=== PATIENT | female | born 1975 | race Caucasian/White ===

== ENCOUNTER 2020-01-18 04:14 | Outpatient (CLI) | payer MEDICAID, SELFPAY ==
[2020-01-18 08:32] LABS: Hemoglobin A1C 5.5 % (<5.7)
[2020-01-18 09:19] LABS: ALT 50 U/L (14-59); AST 18 U/L (15-37); Albumin 4.2 g/dL (3.4-5.0); Alkaline Phosphatase 61 U/L (46-116); Anion Gap 8.2 mmol/L (3-11); BUN 12 mg/dL (7-18); Bilirubin, Total 0.4 mg/dL (0.2-1.0); CO2 27.8 mmol/L (21.0-32.0); CREATININE 0.87 mg/dL (0.55-1.02); Calcium 9.3 mg/dL (8.5-10.1); Calculated LDL 167 mg/dL (<100); Chloride 104 mmol/L (98-107); Cholesterol 232 mg/dL (<200); Glucose 113 mg/dL (74-106); HDL Cholesterol 46 mg/dL (40-60); Sodium 140 mmol/L (136-145); Total Protein 7.6 g/dL (6.4-8.2); Triglyceride 98 mg/dL (<150)
== END 2020-01-18 04:34 ==
PROVIDERS: PCP Family Medicine; Visit Provider Family Medicine
DX: R73.9 Hyperglycemia, unspecified (principal)
CPT/HCPCS: 36415; 80053; 80061; 83036

== ENCOUNTER 2020-03-31 10:37 | Outpatient (CLI) | payer MEDICAID, SELFPAY ==
[2020-04-03 18:44] LABS: Patient Race White; SARS-CoV-2 RNA Undetected (Undetected); SARS-CoV-2 Specimen Source Nasal
== END 2020-03-31 10:57 ==
PROVIDERS: PCP Family Medicine; Visit Provider Family Medicine
DX: Z11.59 Encounter for screening for other viral diseases (principal)
CPT/HCPCS: U0003

== ENCOUNTER 2020-05-15 13:08 | Outpatient (CLI) | payer MEDICAID, SELFPAY ==
[2020-05-16 21:29] LABS: COVID-19 RT-PCR Result NEGATIVE (Negative)
== END 2020-05-15 13:28 ==
PROVIDERS: PCP Family Medicine; Visit Provider Family Medicine
DX: R51.9 Headache, unspecified (principal); Z11.59 Encounter for screening for other viral diseases
CPT/HCPCS: U0003

== ENCOUNTER 2020-09-11 17:16 | Emergency (ER) | payer MEDICAID, SELFPAY ==
[2020-09-11] VITALS (10 sets, daily range): BP systolic 108–130; BP diastolic 60–80; PULSE 106–118; RESP 15–26; TEMP 37.4–37.5; O2SAT 94–97
--- NOTE | 2020-09-11 17:15 | RT.EKG_ITS ---
APPROVED REPORT Exam: Resting ECG Reason for Exam: covid Patient Location: E HR:111 bpm ECG Measurements Heart Rate 111 AXIS NJ 127 P 2 QRSd 79 QRS 18 QT 317 T 26 QTc 431 Conclusion Sinus tachycardia...rate> 99 Low voltage, precordial leads...precordial leads <1.0mV
--- NOTE | 2020-09-11 17:38 | W.ED.GENAD ---
Discharge Plan Disposition Patient Disposition: HOME Condition: Stable Discharge Details Clinical Impression: COVID-19, Shortness of breath Primary Care Provider: Randy Da Silva ED Provider: Karyna Ibanez Home Meds and New Rx's Prescriptions: New doxycycline hyclate 100 mg capsule 100 mg PO BID Qty: 8 RF: 0 albuterol sulfate 1.25 mg/3 mL solution for nebulization 1.25 mg inhalation QID PRN (Reason: shortness of breath or wheezing) Qty: 75 RF: 0 prednisone 20 mg tablet 40 mg PO DAILY 4 Days Qty: 8 RF: 0 Continued albuterol sulfate [Ventolin HFA] 90 mcg/actuation HFA aerosol inhaler 1 - 2 puff IH Q4H PRN (Reason: shortness of breath or wheezing) Qty: 8.5 RF: 11 (DME) Aerochamber MV Spacer See Rx Instructions .ROUTE .MEDSUPPLY Qty: 1 RF: 0 lorazepam 0.5 mg tablet 0.25 - 0.5 mg PO BID PRN (Reason: anxiety) Qty: 40 RF: 1 lobelia PO RF: 0 Discharge Instructions Instructions: Doxycycline (By mouth), Albuterol (By breathing), Viral Syndrome (ED), Dyspnea (ED) Additional Instructions: Please encourage fluid intake. Please use her inhaler and nebulizer as previously prescribed. Please take the steroids as prescribed. You will not need another dose of steroids until tomorrow evening. Please take the antibiotics as prescribed. Please continue to monitor your oxygen level at home as you have been. I would like you to follow-up with your primary care within the week for reevaluation. If you develop low oxygen, inability stay hydrated, increase shortness of breath or other new/worsening symptoms please seek care urgently once again. Referrals: Randy Da Silva [Primary Care Provider] - Discharge Data Discharge Date/Time-TO BE ENTERED AT DEPARTURE: 09/11/20 21:10 Medical Decision Making Patient is a pleasant 45-year-old female past medical history pertinent for asthma, presenting today with chief complaint of shortness of breath. Patient reports that she began having upper respiratory symptoms including congestion, sinus pressure, cough 8 days ago. She reports that then 3 days ago she began having increased shortness of breath. Patient was tested for COVID-19 she does have a known contact 3 days ago. Was found to be +2 days ago. Physical shortness of breath is increasing. Has been using her nebulizer more frequently. Present this has helped slightly symptomatic management. She denies any chest pain. Has had some muscle cramps including some discomfort in the posterior aspect of the left lower extremity but no extremity pain currently. On exam, patient appears to be uncomfortable and anxious. She does not appear to be in any respiratory distress. She is afebrile stable vital signs. Lungs initially had some faint wheezing with cleared after cough. No lower extremity edema or calf tenderness Patient is using nebulizer just prior to arrival, is not currently wheezy, will hold off on further treatment at this time. Plan to obtain baseline labs, imaging. I am concerned for potential PE, particularly given the patient's recent diagnosis of COVID-19, increased shortness of breath with tachycardia cardia. Will screen with D-dimer. I suspect that her overlying bacterial infection. She does not have evidence to suggest ACS, dissection at this time. Will give IV fluids, patient did appear quite dry on exam. We will also give steroids for asthma and COVID-19 leading to wheezing and shortness of breath EKG was obtained and reviewed by Dr. Wood. Notable for tachycardic rhythm with a heart rate of 111. Does not low voltage in the precordial leads. No acute ischemic changes noted. Labs reviewed. No leukocytosis. Stable H&H. D-dimer is elevated at 1281. Will obtain CT for PE protocol. Testing slightly low at 3.4. Patient does have mild transaminitis with an AST of 49, ALT of 94. Discussed these findings at length with the patient. We did discuss her/benefits of CT for PE protocol and patient is in agreement with further imaging. FINDINGS: Pulmonary arteries: Normal. No pulmonary emboli. Aorta: No aortic aneurysm. No aortic dissection. Lungs: There are peripheral patchy and ground-glass opacities noted in the bilateral lung whitehead, consistent with known viral pneumonia. Pleural spaces: No pneumothorax. No pleural effusion. Heart: No cardiomegaly. No pericardial effusion. Lymph nodes: No enlarged lymph nodes. Bones/joints: Unremarkable. No acute fracture. Soft tissues: Unremarkable. IMPRESSION: 1. Peripheral patchy and ground-glass opacities in the bilateral lung whitehead, concerning for viral pneumonia. 2. No evidence of pulmonary embolism I discussed these findings with the patient. She is feeling improved after IV fluids, steroids. We will continue patient on steroids. Given the opacities as well as slight I will be placing the patient on the steroid, I do feel that putting her on oral antibiotics at this time would be appropriate. Patient will continue to quarantine. I did encourage close follow-up with primary care. We did discuss Mab infusion and I advised that she discuss this further with her primary care for outpatient evaluation and treatment. He was given strict return precautions. Patient reports that she has a home pulse oximeter will continue to monitor her O2. All of her questions and concerns were addressed and she is in agreement with this plan. HPI General Mode of arrival: ambulatory. Date/Time Provider Initiated Documentation: 09/11/20 17:38. Limitations to Documentation: no limitations. Information obtained by: patient and RN notes reviewed. History of Present Illness 45 year old F presents to the emergency department with the chief complaint of increased SOB, cough, fever, wheezing, described as moderate, Quality is described as other (she denies any pain), and is localized to the chest (feels tight). Patient reports no radiation. Patient started experiencing this day(s) (4) and it has been constant. Medication improves symptom(s), (nebulizer) No exacerbating factors reported . Patient notes cough, fever/chills, loss of appetite and shortness of breath; denies chest pain, nausea/vomiting and weakness. Patient did receive the following treatments prior to arrival, other (albuterol) Related Data Home Medications Medication Instructions Recorded Confirmed albuterol sulfate 90 mcg/actuation 1 - 2 puff IH Q4H PRN #8.5 gm 01/12/19 09/13/20 aerosol inhaler inhalational spacing device #1 each 01/12/19 04/18/20 lorazepam 0.5 mg tablet 0.25 - 0.5 mg PO BID PRN #40 tab 01/18/20 09/11/20 lobelia PO 04/05/20 04/18/20 albuterol sulfate 1.25 mg INHALATION QID PRN #75 ml 09/11/20 09/13/20 doxycycline hyclate 100 mg PO BID #8 cap 09/11/20 09/13/20 prednisone 40 mg PO DAILY 4 Days #8 tab 09/11/20 09/13/20 Previous Rx's Medication Instructions Recorded albuterol sulfate 90 mcg/actuation 1 - 2 puff IH Q4H PRN #8.5 gm 01/12/19 aerosol inhaler inhalational spacing device #1 each 01/12/19 lorazepam 0.5 mg tablet 0.25 - 0.5 mg PO BID PRN #40 tab 01/18/20 albuterol sulfate 1.25 mg INHALATION QID PRN #75 ml 09/11/20 doxycycline hyclate 100 mg PO BID #8 cap 09/11/20 prednisone 40 mg PO DAILY 4 Days #8 tab 09/11/20 Allergies Allergy/AdvReac Type Severity Reaction Status Date / Time No Known Allergies Allergy Verified 09/11/20 17:28 General Stated Complaint: RespSymp RAJAT: 3 Review of Systems Constitutional Constitutional: Reports as per HPI, Reports chills, Reports fever(s) and Denies headache(s) Eyes Eyes: Reports as per HPI, Denies eye discharge and Denies irritation ENT Ears, Nose, Mouth, and Throat: Reports as per HPI, Denies change in voice, Denies otalgia, Denies headache(s), Reports nasal congestion, Denies odynophagia, Denies sinus pain, Reports sore throat and Denies throat swelling Cardiovascular Cardiovascular: Reports as per HPI, Denies chest pain, Denies leg edema, Denies lightheadedness, Denies radiating jaw, neck or arm pain and Reports dyspnea Respiratory Respiratory: Reports as per HPI, Reports cough, Denies pain on inspiration, Denies pain with cough, Reports dyspnea and Reports wheezing Gastrointestinal Gastrointestinal: Reports as per HPI, Denies abdominal pain, Denies change in bowel habits, Denies nausea, Denies odynophagia and Denies vomiting Integumentary/Breasts Skin/Breast: Reports as per HPI and Denies rash Neurologic Neurologic: Reports as per HPI and Denies headache(s) Allergic/Immunologic Allergic/Immunologic: Denies throat swelling and Reports wheezing [facility] Medical History Constipation Hair loss History of asthma Hyperglycemia Mild intermittent asthma Morbid obesity Scalp lesion Surgical History H/O nasal septoplasty Drums teeth removed Family History Mother Depression COPD (chronic obstructive pulmonary disease) Father Alcohol abuse Maternal Grandfather Heart disease Maternal Grandmother Heart disease Paternal Grandfather , 55 CAD (coronary artery disease) Paternal Grandmother , 93 No problems noted. Son No problems noted. Daughter No problems noted. Social History Smoking/Tobacco Use Status: Never Second Hand Exposure: Yes Smoking risk assessment performed?: Yes Alcohol Intake: current Alcohol Intake frequency: a few times a month Alcohol type: beer and wine Drug use: Never Substance use type: does not use Caregiver/Support person: No Household members: spouse and children Housing: house Communication Needs: None Do you need help understanding health information?: Often Pets and animals: Yes Pets and animals: cat(s), dog(s) and horse(s) Do you think of yourself as: straight/heterosexual Current gender identity: female What is your relationship status?: How often do you talk on the phone with friends or family?: decline to answer How often do you get together with friends or relatives?: decline to answer How often do you attend buddhism or yazidism services?: decline to answer Do you belong to any clubs or organized social groups?: decline to answer Panel score (0-1 are the most socially isolated patients): 1 What type of physical activity do you participate in: decline to answer Duration: < 15 minutes/day Frequency: 1-2 times per week Acacia/Zoroastrian: No preference Special acacia needs: No Seatbelt use: always 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 Do you feel safe at home: Yes Do you feel safe in your relationship?: Yes Exam Const General: cooperative, healthy appearing, uncomfortable, no acute distress, well developed, well groomed and anxious Nutritional Appearance: well nourished and overweight Orientation: alert and awake [facility] Head: normal to inspection, normocephalic and atraumatic Ears: hearing grossly normal bilaterally and external ears normal General nose exam: external nose normal and nares normal Face and sinus: normal facial exam, sinuses nontender and face symmetric Mouth: oral mucosae normal, lip normal, tongue normal, oropharynx normal and mucous membranes dry (appears dry) Teeth and gingiva: dentition normal Throat: posterior oropharynx normal, tonsils normal and uvula midline Eyes General: appearance normal, both eyes and all related structures Neck Neck: normal visual inspection, full ROM, no lymphadenopathy and no meningeal signs Resp Effort & Inspection: normal respiratory effort, able to speak in complete sentences and no respiratory distress Auscultation: clear to auscultation bilaterally, no rales, no rhonchi and wheezes (wheezing noted initially, cleared after cough) Cardio Rate: tachycardic Rhythm: regular rhythm Heart Sounds: S1 normal and S2 normal GI Inspection: normal to inspection Palpation: soft and nontender Skin General skin exam: no rashes or lesions noted Neuro General: patient alert and patient awake Cognition: normal cognition Speech: speech normal Gait: normal gait Extrem General: normal to inspection, no clubbing, cyanosis or edema, no pedal edema and no calf tenderness Psych Appearance: grossly normal and well kempt Mental Status: mental status grossly normal Speech and Movement: speech and movement normal Course Vital Signs Vital signs: Vital Signs Temperature 37.5 C 09/11/20 17:23 Pulse 118 H 09/11/20 17:23 Respiratory Rate 09/11/20 17:23 Blood Pressure 130/80 09/11/20 17:23 Pulse Oximetry 96 09/11/20 17:23 Temperature 37.5 C 09/11/20 17:23 Temperature Source Skin 09/11/20 17:23 Pulse 118 H 09/11/20 17:23 Respiratory Rate 09/11/20 17:23 Respiratory Effort Non-Labored 09/11/20 17:28 Blood Pressure 130/80 09/11/20 17:23 Blood Pressure Position Sitting 09/11/20 17:23 Pulse Oximetry 96 09/11/20 17:23 Oxygen Delivery Method Room Air 09/11/20 17:23 Oxygen Flow Rate 0 09/11/20 17:23 Pain Level 0 09/11/20 17:23
--- NOTE | 2020-09-11 17:49 | DI.RAD_ITS ---
Exam(s) XR PORTABLE CHEST AP EXAM: XR PORTABLE CHEST AP CLINICAL HISTORY: SOB, known covid + TECHNIQUE: 2D digital imaging was performed. COMPARISON: No exams were available for comparison FINDINGS: MEDIASTINUM: Normal. HEART: Normal. PULMONARY VASCULATURE: Normal. LUNGS: Bilateral patchy pulmonary infiltrates. PLEURAL SPACE: No pleural effusion or pneumothorax. BONE:Within normal limits for the patient's age. OTHER FINDINGS:Normal. IMPRESSION: Bilateral patchy infiltrates consistent with pneumonia. DATA REPOSITORY: RADIATION DOSE DELIVERED:
[2020-09-11] MEDS: Dexamethasone 4 MG/ML VIAL 6 MG IVP (18:19)
[2020-09-11 18:26] LABS: Abs Immature Grans 0.01 10^3/uL (0.0-0.06); Absolute Basophil Count 0.01 10^3/uL (0.0-0.2); Absolute Lymphocyte Count 1.46 10^3/uL (1.2-3.4); Absolute Neutrophil Count 2.09 10^3/uL (1.2-6.7); Basophils % 0.3; HCT 37.9 % (36.0-46.0); HGB 13.2 g/dL (11.2-15.7); Immature Grans % 0.3; Lymphocytes % 38.7; MCH 30.6 pg (27.0-33.0); MCHC 34.8 % (32.0-36.0); MCV 87.9 fL (80-95); MPV 10.2 fL (8.0-11.0); Monocytes % 5.3; Neutrophils % 55.4; Nucleated RBC 0 %; Platelet Count 226 10^3/uL (130-400); RBC 4.31 10^6/uL (3.93-5.22); RDW 12.1 % (11.7-14.6); RDW-SD 39.7 fL; WBC 3.77 10^3/uL (4.4-10.8)
[2020-09-11 18:32] LABS: ALT 96 U/L (14-59); AST 49 U/L (15-37); Albumin 3.4 g/dL (3.4-5.0); Alkaline Phosphatase 52 U/L (46-116); Anion Gap 12.9 mmol/L (3-11); BUN 12 mg/dL (7-18); Bilirubin, Total 0.3 mg/dL (0.2-1.0); CO2 28.1 mmol/L (21.0-32.0); Calcium 8.4 mg/dL (8.5-10.1); Chloride 100 mmol/L (98-107); Estimated GFR 59.69 (mL/min/1.73m2); Glucose 119 mg/dL (74-106); Potassium 3.4 mmol/L (3.5-5.1); Sodium 141 mmol/L (136-145); Total Protein 7.5 g/dL (6.4-8.2)
[2020-09-11 18:34] LABS: Troponin I < 0.05 ng/mL (<0.06)
--- NOTE | 2020-09-11 18:35 | DI.VRAD_ITS ---
PROCEDURE INFORMATION: Exam: XR Chest Exam date and time: 09/11/2020 6:22 PM Age: 45 years old Clinical indication: Covid TECHNIQUE: Imaging protocol: XR of the chest. Views: 1 view. COMPARISON: No relevant prior studies available. FINDINGS: Lungs: There are patchy and linear opacities noted in the bilateral lung whitehead, consistent with known viral pneumonia. Pleural spaces: No pneumothorax. The left costophrenic angle is not well evaluated and a small pleural effusion in this region is not excluded. Heart/Mediastinum: Unremarkable. No cardiomegaly. Bones/joints: Unremarkable. IMPRESSION: Patchy and linear opacities in the bilateral lung whitehead, consistent with known viral pneumonia. No large dense consolidation. Dictated and Authenticated by: Alejandra Shah MD. Ordering:FRANCINE Troncoso MD
[2020-09-11 18:44] LABS: D-Dimer 1281 ng/mlFEU (<500)
--- NOTE | 2020-09-11 18:45 | DI.CT_ITS ---
Exam(s) CT CHEST PE CTA EXAM: CT CHEST PE CTA CLINICAL HISTORY: increased SOB, +d-dimer, known covid. TECHNIQUE: Imaging Protocol: Axial CT angiography was performed with multi-slice acquisition and mu lti-planar and/or 3D reconstructions. CONTRAST MATERIAL: Intravenous: Omnipaque 350 Contrast volume:100 mL COMPARISON: CR,XR XR PORTABLE CHEST AP from 09/11/2020 FINDINGS: Tracheobronchial tree: Patent where visualized. Pulmonary parenchyma: There are bilateral predominantly peripheral ground-glass opacities throughout the lungs. No architectural distortion. Pulmonary Arteries: No evidence of filling defect to suggest pulmonary emboli. Mediastinum and Ambika: No dominant adenopathy or fluid collection. Visualized thyroid gland: Unremarkable. Pleura: No effusion or pneumothorax. Heart: The heart is not dilated. No coronary artery calcifications are seen. No pericardial effusion. Aorta: Thoracic aorta non-dilated. Mild atherosclerosis. Upper abdomen: Unremarkable. Soft tissues: Unremarkable. Bones: Normal. IMPRESSION: 1. No evidence of pulmonary embolism, thoracic aortic dissection or aneurysm. 2. Scattered bilateral ground-glass opacities suspicious for pneumonia. This would be consistent wit h a viral pneumonia such as COVID-19. RADIATION DOSE DELIVERED: 643.53mGy.cm Total DLP DATA REPOSITORY: All CT scans at this facility are submitted to the National Radiology Data Registry (NRDR) Dose Index Registry (DIR) with the [employer] (ACR). RADIATION OPTIMIZATION: All CT scans at this facility use at least one of these dose optimization te chniques: automated exposure control; mA and/or kV adjustment per patient size (includes targeted exa ms where dose is matched to clinical indication); or iterative reconstruction.
[2020-09-11] MEDS: Omnipaque 350 MG/ML 100 ML BTL IJ (19:57)
[2020-09-11] MEDS: Normal Saline - Diluent 50 ML VIAL IV (19:57)
--- NOTE | 2020-09-11 20:29 | DI.VRAD_ITS ---
PROCEDURE INFORMATION: Exam: CTA Chest With Contrast Exam date and time: 09/11/2020 7:49 PM Age: 45 years old Clinical indication: Abnormal findings; Abnormal diagnostic tests; Elevated d-dimer; Shortness of breath; Patient HX: Increased SOB, + d dimer, known covid TECHNIQUE: Imaging protocol: Computed tomographic angiography of the chest with contrast. 3D rendering (Not supervised by radiologist): MIP and/or 3D reconstructed images were created by the technologist. COMPARISON: CR XR PORTABLE CHEST AP 09/11/2020 6:15 PM FINDINGS: Pulmonary arteries: Normal. No pulmonary emboli. Aorta: No aortic aneurysm. No aortic dissection. Lungs: There are peripheral patchy and ground-glass opacities noted in the bilateral lung whitehead, consistent with known viral pneumonia. Pleural spaces: No pneumothorax. No pleural effusion. Heart: No cardiomegaly. No pericardial effusion. Lymph nodes: No enlarged lymph nodes. Bones/joints: Unremarkable. No acute fracture. Soft tissues: Unremarkable. IMPRESSION: 1. Peripheral patchy and ground-glass opacities in the bilateral lung whitehead, concerning for viral pneumonia. 2. No evidence of pulmonary embolism. Dictated and Authenticated by: Alejandra Shah MD. Ordering:FRANCINE Troncoso MD
[2020-09-11] MEDS: Albuterol HFA 8 GM 60 PUFF INH IH (21:08)
[2020-09-11] MEDS: Doxycycline Hyclate 100 MG CAP 200 MG PO (21:08)
== END 2020-09-11 21:10 | disposition home or self-care (01) ==
PROVIDERS: Emergency Provider Physician Assistant; PCP Family Medicine
DX: U07.1 COVID-19 (principal); R00.0 Tachycardia, unspecified; R91.8 Other nonspecific abnormal finding of lung field; R79.1 Abnormal coagulation profile
CPT/HCPCS: 71275; 80053; 93005; 94640; 96374; 99285; 71045; 83735; 84484; 85025; 85379; 93010; 99284; J1100; J3490

== ENCOUNTER 2020-09-13 12:19 | Outpatient (CLI) | payer MEDICAID, SELFPAY ==
[2020-09-13 12:57] VITALS: BP 126/82; PULSE 95; RESP 20; TEMP 37.8; O2SAT 94
[2020-09-13] MEDS: Normal Saline Flush 10 ML SYR IVP (13:10)
[2020-09-13] MEDS: Normal Saline 500 ML 30 ML IV (13:14)
[2020-09-13 13:18] VITALS: BP 112/77; PULSE 92; RESP 20; TEMP 37.7; O2SAT 93
[2020-09-13 13:51] VITALS: BP 112/68; PULSE 86; RESP 20; TEMP 36.9; O2SAT 93
[2020-09-13 14:24] VITALS: BP 109/74; PULSE 84; RESP 16; TEMP 36.9; O2SAT 95
[2020-09-13 14:55] VITALS: BP 113/74; PULSE 85; RESP 16; TEMP 36.8; O2SAT 94
== END 2020-09-13 12:20 | disposition home or self-care (01) ==
PROVIDERS: PCP Family Medicine; Visit Provider Family Medicine
DX: U07.1 COVID-19 (principal)
CPT/HCPCS: 96365

== ENCOUNTER 2020-11-09 18:17 | Outpatient (REF) | payer MEDICAID, SELFPAY | END 2020-11-09 18:18 | disposition home or self-care (01) | LOC: LBN 18:17 | PROVIDERS: PCP Family Medicine; Visit Provider Nurse Practitioner | DX: R30.0 Dysuria (principal) | CPT/HCPCS: 87086 ==

== ENCOUNTER 2020-11-17 12:28 | Outpatient (REF) | payer MEDICAID, SELFPAY ==
--- NOTE | 2020-11-17 11:10 | PAPFT_PTH ---
PATIENT: Claire Orozco LOC: [facility] U#:[id number] AGE/SX: 45/F ROOM: RE11/17/[address]: KESHA Guo : 1975 BED: DIS: 11/17/2020 SPEC #: [id number] RECD: 11/17/20 15:18 STATUS: SALIMA REIdalia #: [id number] DEA: 11/17/20 11:[address]: Pau Jordan DEPT: [facility] Cytology RECD BY: Elvia Rick ENTERED: 11/17/20 15:18 SP TYPE: PAPFT OTHR DR: Randy Da Silva MD Tissues: 1 - CX/ENDOCX FOR PAP SMEARS Procedures: PAP THIN PREP/[facility] Screening HPV DNA PROBE Comments: [id number]
== END 2020-11-17 12:29 | disposition home or self-care (01) ==
LOC: LBN 12:28
PROVIDERS: PCP Family Medicine; Visit Provider Nurse Practitioner Family
DX: Z12.4 Encounter for screening for malignant neoplasm of cervix (principal); Z11.51 Encounter for screening for human papillomavirus (HPV)
CPT/HCPCS: 88142; 87624

== ENCOUNTER 2021-03-05 02:39 | Outpatient (CLI) | payer MEDICAID, SELFPAY ==
[2021-03-05 08:13] LABS: Hemoglobin A1C 5.4 % (<5.7)
[2021-03-05 09:03] LABS: ALT 57 U/L (14-59); AST 23 U/L (15-37); Albumin 4.2 g/dL (3.4-5.0); Alkaline Phosphatase 58 U/L (46-116); Anion Gap 11.5 mmol/L (3-11); BUN 20 mg/dL (7-18); Bilirubin, Total 0.4 mg/dL (0.2-1.0); CO2 26.5 mmol/L (21.0-32.0); CREATININE 0.8 mg/dL (0.55-1.02); Calcium 9.4 mg/dL (8.5-10.1); Calculated LDL 149 mg/dL (<100); Chloride 105 mmol/L (98-107); Cholesterol 217 mg/dL (<200); Glucose 111 mg/dL (74-106); HDL Cholesterol 49 mg/dL (40-60); Potassium 4.5 mmol/L (3.5-5.1); Sodium 143 mmol/L (136-145); TSH (W/Ref FT4) 1.62 uIU/mL (0.36-3.74); Total Protein 7.5 g/dL (6.4-8.2); Triglyceride 99 mg/dL (<150)
[2021-03-06 09:50] LABS: Hepatitis C Ab w Rflx HCV PCR Negative (Negative)
== END 2021-03-05 02:40 | disposition home or self-care (01) ==
LOC: LBO 02:39
PROVIDERS: PCP Family Medicine; Visit Provider Family Medicine
DX: E03.9 Hypothyroidism, unspecified (principal); R73.9 Hyperglycemia, unspecified; E78.00 Pure hypercholesterolemia, unspecified; L65.8 Other specified nonscarring hair loss; J45.20 Mild intermittent asthma, uncomplicated; E66.9 Obesity, unspecified; Z11.59 Encounter for screening for other viral diseases; Z00.00 Encounter for general adult medical examination without abnormal findings
CPT/HCPCS: 36415; 80053; 80061; 86803; 83036; 84443

== ENCOUNTER 2021-11-18 09:59 | Emergency (ER) | payer MEDICAID, SELFPAY ==
[2021-11-18 10:03] VITALS: BP 154/89; PULSE 107; RESP 16; TEMP 36.5; O2SAT 96
--- NOTE | 2021-11-18 10:18 | ED.GENADUL_ITS ---
Discharge Plan Disposition Patient Disposition: HOME Condition: Stable Discharge Details Clinical Impression: Poison lesa dermatitis Primary Care Provider: Sepideh Mclaughlin ED Provider: Sakina Ferguson Home Meds and New Rx's Prescriptions: New prednisone 20 mg tablet 40 mg PO DAILY 6 Days Qty: 12 0RF Rx Instructions: Take 2 tabs daily x 6 days hydroxyzine HCl 25 mg tablet 25 mg PO QHS PRN (Reason: itching) Qty: 10 0RF Rx Instructions: Take one tablet at night as needed for itching. No Action (DME) Aerochamber MV Spacer See Rx Instructions .ROUTE .MEDSUPPLY Qty: 1 0RF Rx Instructions: As directed albuterol sulfate [Ventolin HFA] 90 mcg/actuation HFA aerosol inhaler 1 - 2 puff IH Q4H PRN (Reason: shortness of breath or wheezing) Qty: 8.5 11RF lorazepam 0.5 mg tablet 0.25 - 0.5 mg PO BID PRN (Reason: anxiety) Qty: 40 1RF lobelia PO albuterol sulfate 1.25 mg/3 mL solution for nebulization 1.25 mg inhalation QID PRN (Reason: shortness of breath or wheezing) Qty: 75 0RF Discharge Instructions Instructions: Poison Lesa (ED) Additional Instructions: Please obtain calamine lotion which you can get [id number] and apply daily as needed to the lesions. You may also obtain oatmeal baths and use those daily. Take the prednisone daily as prescribed you are given the first dose here in the department today. Use the hydroxyzine as needed for itching at night. Return to the ER or be seen sooner for any signs of infection including increased redness, foul drainage, body aches fever or concerns. Should start improving over the next 3 to 5 days. Referrals: Sepideh Mclaughlin MD [Primary Care Provider] - 5 days Medical Decision Making 46-year-old female presents to the ER with chief complaint of poison lesa which she came into contact with on Friday. It began on her right knee and has now spread to her right groin, right axillary, right arm and lower back and left arm. She has tried multiple home remedies including alcohol, apple cider vinegar, essential oils and others with little to no relief. She has not tried any calamine lotion or oatmeal bath. She denies any fever chills or any other associated symptoms. She has been taking Benadryl at night. I did recommend calamine lotion which she can obtain [id number] and oatmeal bath. I will give her prednisone 60 mg here in the department. And hydroxyzine for night time pruritus. Discussed red flags and when to return. At this time there is no signs of infection no surrounding induration. She does have papulovesicular dermatitis with linear formation noted consistent with poison lesa to her right knee, right thigh, right groin right forearm left forearm lower back right axilla. She was given 60 mg prednisone here in the department. Patient prescribed prednisone 40 mg daily for the next 6 days. Instructed to use calamine lotion and oatmeal baths. Patient is nontoxic verbalized understanding. Patient hemodynamically stable alert and oriented. This text was generated using [employer] dictation system, please disregard any oddities of phrase or misspellings. HPI General Mode of arrival: ambulatory . Date/Time Provider Initiated Documentation: 11/18/21 10:09 . Limitations to Documentation: no limitations . Information obtained by: patient, RN notes reviewed and old records reviewed . HPI Narrative: 46-year-old female presents to the ER with chief complaint of poison lesa which she came into contact with on Friday. It began on her right knee and has now spread to her right groin, right axillary, right arm and lower back and left arm. She has tried multiple home remedies including alcohol, apple cider vinegar, essential oils and others with little to no relief. She has not tried any calamine lotion or oatmeal bath. She denies any fever chills or any other associated symptoms. She has been taking Benadryl at night. Related Data Home Medications Medication Instructions Recorded Confirmed inhalational spacing device #1 ea 01/12/19 05/25/21 (Aerochamber MV spacer) lorazepam 0.5 mg tablet 0.25 - 0.5 mg PO BID PRN anxiety 01/18/20 11/18/21 #40 tabs lobelia PO 04/05/20 05/25/21 albuterol sulfate 1.25 mg/3 mL 1.25 mg (3 mL) inhalation QID PRN 09/11/20 11/18/21 solution for nebulization shortness of breath or wheezing #75 mL albuterol sulfate 90 mcg/actuation 1 - 2 puff inhalation Q4H PRN 01/26/21 11/18/21 aerosol inhaler (Ventolin HFA) shortness of breath or wheezing #8.5 grams hydroxyzine HCl 25 mg tablet 25 mg PO QHS PRN itching #10 tabs 11/18/21 prednisone 20 mg tablet 40 mg PO DAILY 6 days #12 tabs 11/18/21 Previous Rx's Medication Instructions Recorded inhalational spacing device #1 ea 01/12/19 (Aerochamber MV spacer) lorazepam 0.5 mg tablet 0.25 - 0.5 mg PO BID PRN anxiety 01/18/20 #40 tabs albuterol sulfate 1.25 mg/3 mL 1.25 mg (3 mL) inhalation QID PRN 09/11/20 solution for nebulization shortness of breath or wheezing #75 mL albuterol sulfate 90 mcg/actuation 1 - 2 puff inhalation Q4H PRN 01/26/21 aerosol inhaler (Ventolin HFA) shortness of breath or wheezing #8.5 grams hydroxyzine HCl 25 mg tablet 25 mg PO QHS PRN itching #10 tabs 11/18/21 prednisone 20 mg tablet 40 mg PO DAILY 6 days #12 tabs 11/18/21 Allergies Allergy/AdvReac Type Severity Reaction Status Date / Time acetaminophen [From Vicodin] AdvReac Intermediate vomiting Verified 05/25/21 11:09 and inability to stand hydrocodone [From Vicodin] AdvReac Intermediate vomiting Verified 11/18/21 10:08 and inability to stand General Stated Complaint: RashLesion RAJAT: 4 Review of Systems Integumentary/Breasts Skin/Breast: Reports as per HPI, Reports pruritus, Reports erythema and Reports rash PFSH All Active Problems (Updated 11/18/21 @ 10:29 by Sakina Ferguson NP) Poison lesa dermatitis (Acute) Elevated BP without diagnosis of hypertension (Acute) 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 Son No problems noted. Daughter No problems noted. 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 Pets and animals: Yes Pets and animals: cat(s), dog(s) and horse(s) Sexually active: No Do you think of yourself as: straight/heterosexual Current gender identity: female What is your relationship status?: How often do you talk on the phone with friends or family?: three or more times per week How often do you get together with friends or relatives?: once per week How often do you attend gnosticist or moravian services?: decline to answer Do you belong to any clubs or organized social groups?: no Panel score (0-1 are the most socially isolated patients): 2 What type of physical activity do you participate in: bicycling and other Details: stretching Duration: 15-30 minutes/day Frequency: 3-4 times per week Acacia/Pentecostal: No preference Special acacia needs: No Seatbelt use: always Drive intox or ride w/intox courtesy bus driver: No Do you feel safe at home: Yes Do you feel safe in your relationship?: Yes Additional Social history: Jen baez, spirituality feeds her soul. Female Reproductive History Menstrual Date of menopause: 05/12/17 Exam Skin Rashes: rashes noted vesicles right dorsal multiple locations arrangement clustered, borders irregular and color red Course Vital Signs Vital signs: Vital Signs Temperature 36.5 C 11/18/21 10:03 Pulse 107 H 11/18/21 10:03 Respiratory Rate 16 11/18/21 10:03 Blood Pressure 154/89 H 11/18/21 10:03 Pulse Oximetry 96 11/18/21 10:03 Temperature 36.5 C 11/18/21 10:03 Temperature Source Temporal Artery Scan 11/18/21 10:03 Pulse 107 H 11/18/21 10:03 Respiratory Rate 16 11/18/21 10:03 Blood Pressure 154/89 H 11/18/21 10:03 Blood Pressure Position Sitting 11/18/21 10:03 Pulse Oximetry 96 11/18/21 10:03 Oxygen Delivery Method Room Air 11/18/21 10:03 Oxygen Flow Rate 0 11/18/21 10:03 Pain Level 0 11/18/21 10:03
[2021-11-18] MEDS: predniSONE 20 MG TAB 60 MG PO (10:27)
== END 2021-11-18 10:44 | disposition home or self-care (01) ==
LOC: ER 10:50
PROVIDERS: Emergency Provider Registered Nurse Emergency; PCP Family Medicine
DX: L23.7 Allergic contact dermatitis due to plants, except food (principal); Z77.22 Contact with and (suspected) exposure to environmental tobacco smoke (acute) (chronic)
CPT/HCPCS: 99283; 99281; J7512

== ENCOUNTER 2021-12-19 11:24 | Emergency (ER) | payer MEDICAID, SELFPAY ==
[2021-12-19] VITALS (10 sets, daily range): BP systolic 114–175; BP diastolic 69–88; PULSE 72–128; RESP 16–24; TEMP 36.3–37.2; O2SAT 97–100
--- NOTE | 2021-12-19 11:30 | RT.EKG_ITS ---
APPROVED REPORT Exam: Resting ECG Reason for Exam: chest pain Patient Location: E HR:103 bpm ECG Measurements Heart Rate 103 AXIS ME 145 P 6 QRSd 82 QRS 32 QT 337 T 59 QTc 443 Conclusion Sinus tachycardia...rate> 99 no STEMI, non-diagnostic EKG
[2021-12-19 12:14] LABS: Abs Immature Grans 0.02 10^3/uL (0.0-0.06); Absolute Basophil Count 0.04 10^3/uL (0.0-0.2); Absolute Lymphocyte Count 3.99 10^3/uL (1.2-3.4); Absolute Monocyte Count 0.32 10^3/uL (0.1-0.8); Basophils % 0.6; Eosinophils % 1.4; HCT 40.7 % (36.0-46.0); HGB 14.2 g/dL (11.2-15.7); Immature Grans % 0.3; Lymphocytes % 54.9; MCH 30.8 pg (27.0-33.0); MCHC 34.9 % (32.0-36.0); MCV 88 fL (80-95); MPV 9.7 fL (8.0-11.0); Monocytes % 4.4; Neutrophils % 38.4; Platelet Count 337 10^3/uL (130-400); RBC 4.61 10^6/uL (3.93-5.22); RDW 12.3 % (11.7-14.6); RDW-SD 39.7 fL; WBC 7.27 10^3/uL (4.4-10.8)
[2021-12-19 12:18] LABS: Lactate 3.4 mmol/L (0.9-1.7)
[2021-12-19] MEDS: Normal Saline 1,000 ML 1000 ML IV (12:18)
[2021-12-19] MEDS: Ondansetron 4 MG/2 ML VIAL IVP (12:20)
[2021-12-19] MEDS: ACETAMINOPHEN 1,000 MG/100 ML BTL 400 MG IVPB (12:25)
[2021-12-19 12:33] LABS: ALT 52 U/L (14-59); AST 20 U/L (15-37); Albumin 4.3 g/dL (3.4-5.0); Alkaline Phosphatase 59 U/L (46-116); Anion Gap 12.5 mmol/L (3-11); BUN 16 mg/dL (7-18); Bilirubin, Total 0.5 mg/dL (0.2-1.0); CO2 23.5 mmol/L (21.0-32.0); CREATININE 1.1 mg/dL (0.55-1.02); Calcium 9.4 mg/dL (8.5-10.1); Chloride 104 mmol/L (98-107); Estimated GFR 53.24 (mL/min/1.73m2); Glucose 130 mg/dL (74-106); Lipase 43 U/L (73-393); Potassium 3.3 mmol/L (3.5-5.1); Sodium 140 mmol/L (136-145); Total Protein 8.1 g/dL (6.4-8.2); Troponin I < 50 ng/L (<or=60)
--- NOTE | 2021-12-19 12:45 | DI.RAD_ITS ---
Exam(s) XR CHEST 2V PA LATERAL EXAM: XR CHEST 2V PA LATERAL CLINICAL HISTORY: RUQ pain TECHNIQUE: 2D digital imaging was performed. COMPARISON: CR,XR XR PORTABLE CHEST AP from 09/11/2020 FINDINGS: The heart is not enlarged. The lungs are clear and well expanded. No pleural effusion seen. Mediastin al contours appear intact. IMPRESSION: Normal chest. RADIATION DOSE DELIVERED: Total DLP
--- NOTE | 2021-12-19 13:24 | DI.CT_ITS ---
Exam(s) CT ABDOMEN PELVIS W EXAM: CT ABDOMEN PELVIS W INDICATION: ruq pain. COMPARISON: CT CT CHEST PE CTA from 09/11/2020 TECHNIQUE: FINDINGS: CT examination of the abdomen and pelvis was performed with intravenous infusion of 100 cc of Omnipaq ue 350. Images obtained through the lung bases are unremarkable. The liver is unremarkable in appearance except for probable mild hepatic steatosis. Gallbladder and bile ducts are CT normal. Pancreas appears normal. Spleen is unremarkable in appearance. Adrenals appear normal. The kidneys are unremarkable with no evidence of hydronephrosis, nephrolithiasis, or renal mass.. Ur inary bladder unremarkable. Abdominal aorta is of normal diameter and no major vascular abnormality is seen. No abdominal wall hernia. No abdominal or pelvic adenopathy. LICENSING COORDINATOR structures appear intact. Appendix is normal. No evidence of diverticulitis or bowel obstruction. IMPRESSION: Hepatic steatosis, otherwise negative CT examination of the abdomen and pelvis. RADIATION DOSE DELIVERED: 1,326.39mGy.cm Total DLP 1,326.39mGy.cm Total DLP !Error CTDIvol RADIATION OPTIMIZATION: All CT scans at this facility use at least one of these dose optimization te chniques: automated exposure control; mA and/or kV adjustment per patient size (includes targeted exa ms where dose is matched to clinical indication); or iterative reconstruction.
[2021-12-19] MEDS: Omnipaque 350 MG/ML 100 ML BTL IJ (13:25)
--- NOTE | 2021-12-19 13:45 | DI.US_ITS ---
Exam(s) US ABDOMEN LIMITED EXAM: US ABDOMEN LIMITED INDICATION: RUQ pain COMPARISON: No exams were available for comparison TECHNIQUE: Ultrasound abdomen performed using standard protocol FINDINGS: Abdominal ultrasound was performed according to the usual protocol. The liver is normal in size and shape. No focal hepatic lesion seen. There is probable hepatic steat osis with increased echogenicity hepatic parenchyma. There is no evidence of cholelithiasis or biliary dilatation. No gallbladder wall thickening or peric holecystic fluid collection. Portal venous flow is hepatopetal. Pancreas appears intact as visualized. Right kidney is normal in size and shape. No renal mass, hydronephrosis, or nephrolithiasis. Abdominal aorta and IVC are of normal diameter. IMPRESSION: Probable hepatic steatosis, otherwise negative abdominal ultrasound .
[2021-12-19 15:18] LABS: D-Dimer 270 ng/mlFEU (<500)
--- NOTE | 2021-12-19 15:59 | NUR.NOTE ---
Nursing Note: Referral given to Care Management to PCP Todd Mclaughlin; for epigastric pain, for 1st available appt.
--- NOTE | 2021-12-19 16:06 | ED.GENADUL_ITS ---
Discharge Plan Disposition Patient Disposition: HOME Condition: Stable Discharge Details Clinical Impression: Acute epigastric pain Primary Care Provider: Sepideh Mclaughlin ED Provider: Elbert Santana Home Meds and New Rx's Prescriptions: New sucralfate [Carafate] 1 gram tablet 1 g PO BID Qty: 30 0RF Continued (DME) Aerochamber MV Spacer See Rx Instructions .ROUTE .MEDSUPPLY Qty: 1 0RF Rx Instructions: As directed albuterol sulfate [Ventolin HFA] 90 mcg/actuation HFA aerosol inhaler 1 - 2 puff IH Q4H PRN (Reason: shortness of breath or wheezing) Qty: 8.5 11RF lorazepam 0.5 mg tablet 0.25 - 0.5 mg PO BID PRN (Reason: anxiety) Qty: 40 1RF lobelia PO albuterol sulfate 1.25 mg/3 mL solution for nebulization 1.25 mg inhalation QID PRN (Reason: shortness of breath or wheezing) Qty: 75 0RF Discharge Instructions Instructions: Abdominal Pain (ED) Additional Instructions: Please take Carafate and Pepcid daily Follow-up with your primary care physician at your scheduled appointment on Friday Your CT scan of your abdomen and pelvis, your chest x-ray, your ultrasound of your abdomen although not show evidence of acute abnormality I recommend a bland, smooth diet Please return should you have new or worsening complaints at this time I do not see any serious cause of your symptoms keep yourself hydrated Referrals: Sepideh Mclaughlin MD [Primary Care Provider] - 1 day Discharge Data Discharge Date/Time-TO BE ENTERED AT DEPARTURE: 12/19/21 17:05 Medical Decision Making Patient had extensive work-up today including CT scan of abdomen pelvis with does not show acute abnormality radiology interpretation my review Ultrasound of gallbladder which did not show evidence of acute nonbloody per radiology interpretation my review Chest x-ray without acute abnormality per radiology interpretation And diagnostic labs that are negative for acute abnormality aside from lactate which I suspect is secondary to draw technique Patient is able to tolerate p.o. She is slightly dehydrated, she received 1 L of normal saline unable to take p.o. She looks significantly more comfortable at time of reassessment At this time we have ruled out acute abnormalities of patient's discomfort She has declined pain medication aside from Tylenol during this encounter I have offered opiate analgesia on several occasions She was willing to take Zofran, she is not vomiting throughout the encounter She will need close outpatient follow-up with her primary care physician I did discuss the case with Dr. Walker as she is still reporting some discomfort, however she does not offer any additional testing necessary at this time I will leave further evaluation to the discretion of her primary care physician She is encouraged to stay away from, fatty food, spicy food, and utilize a bland diet until her symptoms have improved I will discharge her with carafate and Pepcid in the outpatient setting Medical Records Medical records reviewed: Yes I reviewed the patient's medical records. Lab Data Lab results reviewed: Yes I reviewed the patient's lab results. HPI General Date/Time Provider Initiated Documentation: 12/19/21 11:58 . HPI Narrative: This 46-year-old female presents with report of epigastric abdominal pain which came on abruptly she was eating eggs. She states that the pain is pressure. She denies any shortness of breath. She denies any fever or chills. Denies known exacerbating or alleviating factors. States she had similar episodes in the past that they have not been quite as persistent. Denies chest discomfort. Denies any vomiting. Related Data Home Medications Medication Instructions Recorded Confirmed inhalational spacing device #1 ea 01/12/19 05/25/21 (Aerochamber MV spacer) lorazepam 0.5 mg tablet 0.25 - 0.5 mg PO BID PRN anxiety 01/18/20 12/19/21 #40 tabs lobelia PO 04/05/20 05/25/21 albuterol sulfate 1.25 mg/3 mL 1.25 mg (3 mL) inhalation QID PRN 09/11/20 12/19/21 solution for nebulization shortness of breath or wheezing #75 mL albuterol sulfate 90 mcg/actuation 1 - 2 puff inhalation Q4H PRN 01/26/21 12/19/21 aerosol inhaler (Ventolin HFA) shortness of breath or wheezing #8.5 grams sucralfate 1 gram tablet (Carafate) 1 g PO BID #30 tabs 12/19/21 Previous Rx's Medication Instructions Recorded inhalational spacing device #1 ea 01/12/19 (Aerochamber MV spacer) lorazepam 0.5 mg tablet 0.25 - 0.5 mg PO BID PRN anxiety 01/18/20 #40 tabs albuterol sulfate 1.25 mg/3 mL 1.25 mg (3 mL) inhalation QID PRN 09/11/20 solution for nebulization shortness of breath or wheezing #75 mL albuterol sulfate 90 mcg/actuation 1 - 2 puff inhalation Q4H PRN 01/26/21 aerosol inhaler (Ventolin HFA) shortness of breath or wheezing #8.5 grams sucralfate 1 gram tablet (Carafate) 1 g PO BID #30 tabs 12/19/21 Allergies Allergy/AdvReac Type Severity Reaction Status Date / Time acetaminophen [From Vicodin] AdvReac Intermediate vomiting Verified 12/19/21 11:44 and inability to stand hydrocodone [From Vicodin] AdvReac Intermediate vomiting Verified 12/19/21 11:44 and inability to stand General Stated Complaint: Abd Prob RAJAT: 3 Review of Systems All systems reviewed & are unremarkable except as noted in HPI and below PFSH All Active Problems (Updated 12/19/21 @ 16:16 by NUZHAT Schuler) Acute epigastric pain (Acute) Elevated BP without diagnosis of hypertension (Acute) 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 Son No problems noted. Daughter No problems noted. 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 Pets and animals: Yes Pets and animals: cat(s), dog(s) and horse(s) Sexually active: No Do you think of yourself as: straight/heterosexual Current gender identity: female What is your relationship status?: How often do you talk on the phone with friends or family?: three or more times per week How often do you get together with friends or relatives?: once per week How often do you attend sabianism or religion services?: decline to answer Do you belong to any clubs or organized social groups?: no Panel score (0-1 are the most socially isolated patients): 2 What type of physical activity do you participate in: bicycling and other Details: stretching Duration: 15-30 minutes/day Frequency: 3-4 times per week Acacia/Zoroastrianism: No preference Special acacia needs: No Seatbelt use: always Drive intox or ride w/intox utility worker driver: No Do you feel safe at home: Yes Do you feel safe in your relationship?: Yes Additional Social history: Jen baez, spirituality feeds her soul. Female Reproductive History Menstrual Date of menopause: 05/12/17 Exam Const General: well developed and acute distress HENMT Head: normal to inspection Resp Effort & Inspection: normal respiratory effort Auscultation: clear to auscultation bilaterally Cardio Rate: regular rate Rhythm: regular rhythm GI Other: Right upper quadrant tenderness No rebound or guarding, no CVA tenderness, no abdominal bruit or pulsatile mass Skin General skin exam: no rashes or lesions noted Neuro General: patient alert and patient oriented x3 Speech: speech normal Extrem Other: distal pulses intact Course Vital Signs Vital signs: Vital Signs Temperature 36.4 C L 12/19/21 11:40 Pulse 128 H 12/19/21 11:40 Respiratory Rate 24 12/19/21 11:40 Blood Pressure 175/88 H 12/19/21 11:40 Pulse Oximetry 100 12/19/21 11:40 Temperature 37.2 C 12/19/21 15:50 Temperature Source Tympanic 12/19/21 15:50 Pulse 90 12/19/21 15:50 Respiratory Rate 18 12/19/21 15:50 Blood Pressure 128/69 12/19/21 15:50 Blood Pressure Mean 75 12/19/21 12:47 Blood Pressure Position Standing 12/19/21 11:40 Pulse Oximetry 99 12/19/21 15:38 Oxygen Delivery Method Room Air 12/19/21 15:50 Oxygen Flow Rate 0 12/19/21 15:50 Pain Level 5 12/19/21 12:25 Lab/Test Results Lab/Test Results: Laboratory Tests Range/Units 12/19/21 12/19/21 12/19/21 12:00 12:00 12:00 WBC (4.4-10.8) 10^3/uL 7.27 RBC (3.93-5.22) 10^6/uL 4.61 Hgb (11.2-15.7) g/dL 14.2 Hct (36.0-46.0) % 40.7 MCV (80-95) fL 88 MCH (27.0-33.0) pg 30.8 MCHC (32.0-36.0) % 34.9 RDW (11.7-14.6) % 12.3 Plt Count (130-400) 10^3/uL 337 MPV (8.0-11.0) fL 9.7 Immature Gran % 0.3 Neutrophils % 38.4 Lymphocytes % 54.9 Monocytes % 4.4 Eosinophils % 1.4 Basophils % 0.6 Nucleated RBC % (0.0-0.3) % 0.0 Absolute Neutrophils (1.2-6.7) 10^3/uL 2.80 Absolute Lymphocytes (1.2-3.4) 10^3/uL 3.99 H Absolute Monocytes (0.1-0.8) 10^3/uL 0.32 Absolute Eosinophils (0.0-0.7) 10^3/uL 0.10 Absolute Basophils (0.0-0.2) 10^3/uL 0.04 D-Dimer (<500) ng/mlFEU VBG Lactate (0.9-1.7) mmol/L 3.4 H* Sodium (136-145) mmol/L 140 Potassium (3.5-5.1) mmol/L 3.3 L Chloride (98-107) mmol/L 104 Carbon Dioxide (21.0-32.0) mmol/L 23.5 Anion Gap (3-11) mmol/L 12.5 H BUN (7-18) mg/dL 16 Creatinine (0.55-1.02) mg/dL 1.1 H Estimated GFR/1.73 m2 (mL/min/1.73m2) 53.24 Glucose (74-106) mg/dL 130 H Calcium (8.5-10.1) mg/dL 9.4 Total Bilirubin (0.2-1.0) mg/dL 0.5 AST (15-37) U/L 20 ALT (14-59) U/L 52 Alkaline Phosphatase (46-116) U/L 59 Troponin I (<or=60) ng/L < 50 Total Protein (6.4-8.2) g/dL 8.1 Albumin (3.4-5.0) g/dL 4.3 Lipase (73-393) U/L 43 Range/Units 12/19/21 14:35 WBC (4.4-10.8) 10^3/uL RBC (3.93-5.22) 10^6/uL Hgb (11.2-15.7) g/dL Hct (36.0-46.0) % MCV (80-95) fL MCH (27.0-33.0) pg MCHC (32.0-36.0) % RDW (11.7-14.6) % Plt Count (130-400) 10^3/uL MPV (8.0-11.0) fL Immature Gran % Neutrophils % Lymphocytes % Monocytes % Eosinophils % Basophils % Nucleated RBC % (0.0-0.3) % Absolute Neutrophils (1.2-6.7) 10^3/uL Absolute Lymphocytes (1.2-3.4) 10^3/uL Absolute Monocytes (0.1-0.8) 10^3/uL Absolute Eosinophils (0.0-0.7) 10^3/uL Absolute Basophils (0.0-0.2) 10^3/uL D-Dimer (<500) ng/mlFEU 270 VBG Lactate (0.9-1.7) mmol/L Sodium (136-145) mmol/L Potassium (3.5-5.1) mmol/L Chloride (98-107) mmol/L Carbon Dioxide (21.0-32.0) mmol/L Anion Gap (3-11) mmol/L BUN (7-18) mg/dL Creatinine (0.55-1.02) mg/dL Estimated GFR/1.73 m2 (mL/min/1.73m2) Glucose (74-106) mg/dL Calcium (8.5-10.1) mg/dL Total Bilirubin (0.2-1.0) mg/dL AST (15-37) U/L ALT (14-59) U/L Alkaline Phosphatase (46-116) U/L Troponin I (<or=60) ng/L Total Protein (6.4-8.2) g/dL Albumin (3.4-5.0) g/dL Lipase (73-393) U/L
[2021-12-19 16:51] LABS: Lactate 1.3 mmol/L (0.6-1.4)
== END 2021-12-19 17:05 | disposition home or self-care (01) ==
PROVIDERS: Physician Assistant; Emergency Provider Physician Assistant; PCP Family Medicine
DX: R10.13 Epigastric pain (principal); R07.9 Chest pain, unspecified; R10.11 Right upper quadrant pain; Z86.16 Personal history of COVID-19; Z77.22 Contact with and (suspected) exposure to environmental tobacco smoke (acute) (chronic)
CPT/HCPCS: 36415; 80053; 83690; 93005; 96361; 96374; 96375; 99285; 71046; 74177; 76705; 83605; 84484; 85025; 85379; 93010; J0131; J2405; J3490

== ENCOUNTER 2022-02-11 04:51 | Outpatient (CLI) | payer MEDICAID, SELFPAY ==
--- NOTE | 2022-02-11 14:00 | NS.NUTBLAN_ITS ---
Nito was referred for weight management education, ? prediabetes, NIETO. 5'3 242 lbs, BMI 43 Labs 2021: elevated fasting blood glucose of 130 mg/dl- indicative of diagnosis of diabetes, recommend taking A1C at next blood draw Diet Recall: B: couple of pickles, L: salad with feta cheese, D: pizza typically has ice cream after dinner. No routine exercise. Currently not working. Will start working again in May. Nito reports that she has always struggled with her weight. As a teen, she remembers only eating once daily to help maintain her weight. When her kids were small, she would walk daily and exercise on stationary bike. She has tried the sugar buster diet with success but could not sustain it. She wants to find a meal plan that allows her to eat what she likes and is not too strict but still lets her lose weight. Goal weight: 180 lbs. Suspect Nito as insulin resistance and some metabolic disorder leading to weight gain and difficulty losing weight. May benefit from adding a GLP1ra in future if paid for by insurance- will defer to PCP on this recommendation/possibility. Educated Nito on how to follow a lower carb diet that contains [id number] k pepito, 80-100 g CHO, 60-70 g protein, 45-55 g fat. Provided written materials and meal plans. Goal is for 4-5 lbs weight loss per week. Encoruaged Nito to count her steps and to walk 2 miles daily - 10 mile per week goal. Follow up scheduled for 03/18/22 at 2 pm.
== END 2022-02-11 04:52 | disposition home or self-care (01) ==
LOC: DS 04:52
PROVIDERS: PCP Family Medicine; Visit Provider Dietitian, Registered
DX: E66.01 Morbid (severe) obesity due to excess calories (principal); K75.81 Nonalcoholic steatohepatitis (NASH); R73.03 Prediabetes; Z68.41 Body mass index [BMI] 40.0-44.9, adult; Z71.3 Dietary counseling and surveillance
CPT/HCPCS: 97802

== ENCOUNTER 2022-04-08 03:28 | Outpatient (CLI) | payer MEDICAID, SELFPAY ==
--- NOTE | 2022-04-08 14:00 | NS.NUTBLAN_ITS ---
Claire returns for weight and diet management. PMH: NIETO, prediabetes. Wt: 230 lbs, has lost 12 lbs in last 7 weeks Exercise: 1 hour per day on eliptical at home. Diet Recall: 2 eggs for B, Sweet Grass soup for L, Pizza for dinner Claire reports that she feels empowered to be able to incude the foods she likes and lose weight. Counting carbs and increasing protein intake and exercising daily has helped her lose 12 lbs. She does not feel hungry and feels like she can follow this plan going forward. Claire is returning to work in May and is concerned that she won't be able to exercise as much then. She will first start out at [employer] and hopes that she can exercise at least 4 x per week. Reviewed meal plans and encouraged her to continue to track her meals and monitor her weight weekly. She does not want follow up appt. at this time but will reach out when she needs further assistance.
== END 2022-04-08 03:29 | disposition home or self-care (01) ==
LOC: DS 03:28
PROVIDERS: PCP Family Medicine; Visit Provider Dietitian, Registered
DX: E66.01 Morbid (severe) obesity due to excess calories (principal); R73.03 Prediabetes; K75.81 Nonalcoholic steatohepatitis (NASH); Z71.3 Dietary counseling and surveillance
CPT/HCPCS: 97803

== ENCOUNTER 2022-06-04 02:28 | Outpatient (CLI) | payer MEDICAID, SELFPAY ==
--- NOTE | 2022-06-04 07:45 | DI.MAMMO_ITS ---
Exam(s) MAMMO SCREENING EXAM: MAMMO SCREENING CLINICAL HISTORY: screening,Z12.39. TECHNIQUE: Bilateral full field digital CC and MLO mammographic images were obtained with 3D tomosyn thesis and utilizing computer aided detection (CAD). COMPARISON: Baseline mammogram on this 47-year-old patient FINDINGS: There are no CAD designations. There are no spiculated masses nor malignant appearing microcalcification groups. There is no significant architectural distortion nor skin thickening-retraction. IMPRESSION: No radiographic evidence of malignancy. BI-RADS Category 1 - Negative Breast Density - Category A - Almost entirely fatty Breast density Category C or D implies that the patient has dense breast tissue. Dense breast tissue can make it harder to find cancer on a mammogram. Dense breast tissue is also associated with an incr eased risk of breast cancer. This information about the result of the mammogram report was provided to the patient to raise their awareness. Use this report when you speak with the patient about their risks for breast cancer, which includes their family history. At that time, you may recommend additional screening tests (Ultrasoun d or MRI) as these tests may add significant information. A negative radiographic report should not delay biopsy if a dominant or clinically suspicious mass is present. Up to ten percent of cancers are not identified on mammography. A negative report may reinforce clinical impression. Adenosis and dense breasts may obscure an underlying neoplasm. False positive reports average 6 to 10%. Patient will receive a letter notifying them of these results.
== END 2022-06-04 02:48 ==
LOC: DI 02:28
PROVIDERS: PCP Family Medicine; Visit Provider Family Medicine
DX: Z12.31 Encounter for screening mammogram for malignant neoplasm of breast (principal)
CPT/HCPCS: 77063; 77067

== ENCOUNTER 2022-07-03 02:44 | Outpatient (CLI) | payer MEDICAID, SELFPAY ==
[2022-07-03 11:16] LABS: Hemoglobin A1C 5.4 % (<5.7)
[2022-07-03 11:34] LABS: ALT 45 U/L (14-59); AST 20 U/L (15-37); Albumin 4.5 g/dL (3.4-5.0); Alkaline Phosphatase 65 U/L (46-116); Anion Gap 9.1 mmol/L (3-11); BUN 14 mg/dL (7-18); Bilirubin, Total 0.6 mg/dL (0.2-1.0); CO2 26.9 mmol/L (21.0-32.0); CREATININE 0.9 mg/dL (0.55-1.02); Calcium 9.8 mg/dL (8.5-10.1); Chloride 106 mmol/L (98-107); Estimated GFR 78.86 (mL/min/1.73m2); Glucose 102 mg/dL (74-106); Potassium 3.9 mmol/L (3.5-5.1); Sodium 142 mmol/L (136-145); Total Protein 8.1 g/dL (6.4-8.2)
== END 2022-07-03 02:45 | disposition home or self-care (01) ==
PROVIDERS: PCP Family Medicine; Visit Provider Family Medicine
DX: R73.01 Impaired fasting glucose (principal); K76.0 Fatty (change of) liver, not elsewhere classified; Z00.00 Encounter for general adult medical examination without abnormal findings; E66.01 Morbid (severe) obesity due to excess calories; F41.8 Other specified anxiety disorders
CPT/HCPCS: 36415; 80053; 83036

== ENCOUNTER 2022-07-23 01:39 | Emergency (ER) | payer MEDICAID, SELFPAY ==
[2022-07-23 01:44] VITALS: BP 151/82; PULSE 109; RESP 20; TEMP 36.6; O2SAT 100
--- NOTE | 2022-07-23 01:51 | ED.GENADUL_ITS ---
Discharge Plan Disposition Patient Disposition: Home Condition: Improving Discharge Details Clinical Impression: Allergic reaction, Tongue irritation Primary Care Provider: Sepideh Mclaughlin ED Provider: Shaneka Puentes Home Meds and New Rx's Prescriptions: New prednisone 20 mg tablet See Rx Instructions .ROUTE .COMPLEX Qty: 12 0RF Rx Instructions: Take 3 tabs daily for 2 days, then 2 tabs daily for 2 days, then 1 tab daily for 2 days Continued (DME) Aerochamber MV Spacer See Rx Instructions .ROUTE .MEDSUPPLY Qty: 1 0RF Rx Instructions: As directed albuterol sulfate [Ventolin HFA] 90 mcg/actuation HFA aerosol inhaler 1 - 2 puff IH Q4H PRN (Reason: shortness of breath or wheezing) Qty: 8.5 11RF famotidine 40 mg tablet 40 mg PO BID PRN albuterol sulfate 1.25 mg/3 mL solution for nebulization 1.25 mg inhalation QID PRN (Reason: shortness of breath or wheezing) Qty: 75 0RF Discontinued lobelia PO Discharge Instructions Instructions: Contact Dermatitis (ED), General Allergic Reaction (ED) Additional Instructions: It appears you likely had a reaction to the oral tincture which may contain an irritant or allergen. Do not use any tinctures without discussing with a medical provider at your primary care doctor's office. A prescription for steroids has been sent electronically to your pharmacy to take as directed until finished. Drink plenty of fluids and get plenty of rest. You can take Benadryl as needed and directed for itching. Follow-up with your primary care doctor in 1 week. Return to the emergency department with any worsening or new concerning symptoms. Discharge Data Discharge Physician: Shaneka Puentes Medical Decision Making 0144 -- 47yo F w/ a h/o asthma presents for sensation of tongue discomfort and swelling for the past hour after using an herbal tincture for asthma approximately 5 hours ago. Patient appears anxious but airway intact and she is speaking in full sentences. Heart rate and blood pressure elevated on arrival now within normal limits. Oxygen saturation 100% on room air. Tongue itself appears normal to inspection. Area underneath the tongue appears to show erythema and mild edema of the sublingual folds which have some tenderness to palpation. There is no area of drainage or bleeding. No abscess noted. Normal oropharynx. Lungs clear throughout. No drooling, trismus or submandibular swelling. Suspect patient is having a contact irritation or dermatitis to the tincture as it was directly applied to the area under the tongue or an allergic reaction. She denies any itching and endorses more discomfort. Patient has already taken a Benadryl and drove herself here. We will give a dose of steroids and ibuprofen and continue to monitor. Inspection of the herbal tincture bottle called Lung Remedy contains alcohol, mullein, elecampane, echinacea, elderflower, pleurisy, yarrow. Patient took one 20 mg tab of the 60 mg prednisone dose and states she felt like she could not swallow it. Patient appeared anxious. We will hold on additional oral prednisone and give an IV dose of Solu-Medrol. We also change Motrin to IV Toradol. She was able to drink and swallow liquid after. 0330 --patient reassessed and she states she feels much better would like to go home. Her oxygen saturation is within normal limits. Inspection of her tongue appears to show some improvement. She is speaking in full sentences. Advised to no longer use any herbal tinctures and to discuss any further interventions that are [id number] with her primary care provider. A prescription for steroids has been sent electronically to her pharmacy. Advised to follow up with the primary care doctor for re-evaluation. Usual and customary return precautions given prior to discharge. Medical Records Medical records reviewed: Yes I reviewed the patient's medical records. HPI General Mode of arrival: ambulatory . Date/Time Provider Initiated Documentation: 07/23/22 01:42 . Limitations to Documentation: no limitations . Information obtained by: patient . HPI Narrative: Patient is a 47-year-old female who presents with sensation of tongue swelling for the past hour. Patient states she used an herbal tincture for her asthma around 830pm last night and awoke at 1am with a sensation of tongue pain and swelling. Patient states she used this medication last night after she felt she was developing an asthma attack or allergy after cleaning a family member's house yesterday. Patient states she has an allergy to dust and was vacuuming a family member's house yesterday which was very cyril. She states around 2:00 yesterday afternoon she felt a sensation of fullness and itching in her throat and chest. She denies using any cleaning or chemical materials yesterday. She took 1 Benadryl at home within the past hour and came here for further evaluation. She denies any fever, vomiting, difficulty breathing. Patient states this is the second time she has used this herbal tincture and states that the first time she used this medication was 2 to 3 weeks ago and developed a similar sensation for which she followed up with her primary care doctor and diagnosed her with possible thrush and placed on clotrimazole lozenges and states the symptoms improved. Patient states at that time she had forgotten that she used this herbal tincture 3 days prior and had not revealed this to her primary care doctor at the time. She states she had been using a Lobelia herbal tincture for her asthma previously and did note tongue swelling occasionally while using this as well. Related Data Home Medications Medication Instructions Recorded Confirmed inhalational spacing device #1 ea 01/12/19 07/12/22 (Aerochamber MV spacer) albuterol sulfate 1.25 mg/3 mL 1.25 mg (3 mL) inhalation QID PRN 09/11/20 07/12/22 solution for nebulization shortness of breath or wheezing #75 mL albuterol sulfate 90 mcg/actuation 1 - 2 puff inhalation Q4H PRN 01/26/21 07/12/22 aerosol inhaler (Ventolin HFA) shortness of breath or wheezing #8.5 grams famotidine 40 mg tablet 40 mg PO BID PRN 01/25/22 07/12/22 prednisone 20 mg tablet See Rx Instructions .Route 07/23/22 .COMPLEX #12 tabs Previous Rx's Medication Instructions Recorded inhalational spacing device #1 ea 01/12/19 (Aerochamber MV spacer) albuterol sulfate 1.25 mg/3 mL 1.25 mg (3 mL) inhalation QID PRN 09/11/20 solution for nebulization shortness of breath or wheezing #75 mL albuterol sulfate 90 mcg/actuation 1 - 2 puff inhalation Q4H PRN 01/26/21 aerosol inhaler (Ventolin HFA) shortness of breath or wheezing #8.5 grams prednisone 20 mg tablet See Rx Instructions .Route 07/23/22 .COMPLEX #12 tabs Allergies Allergy/AdvReac Type Severity Reaction Status Date / Time acetaminophen [From Vicodin] AdvReac Intermediate vomiting Verified 07/23/22 01:51 and inability to stand hydrocodone [From Vicodin] AdvReac Intermediate vomiting Verified 07/23/22 01:51 and inability to stand General Stated Complaint: Allergic RAJAT: 3 Review of Systems All systems reviewed & are unremarkable except as noted in HPI and below Constitutional Constitutional: Reports as per HPI, Denies chills and Denies fever(s) Eyes Eyes: Denies blurry vision ENT Ears, Nose, Mouth, and Throat: Denies dizziness, Denies sore throat, Denies throat swelling and Reports tongue swelling Cardiovascular Cardiovascular: Denies chest pain and Denies dyspnea Respiratory Respiratory: Denies cough and Denies dyspnea Gastrointestinal Gastrointestinal: Denies abdominal pain, Denies diarrhea and Denies vomiting Genitourinary Genitourinary: Denies hematuria and Denies dysuria Musculoskeletal Musculoskeletal: Denies back pain and Denies numbness Integumentary/Breasts Skin/Breast: Denies lesions and Denies rash Neurologic Neurologic: Denies dizziness, Denies localized weakness and Denies numbness Allergic/Immunologic Allergic/Immunologic: Denies throat swelling and Reports tongue swelling PFSH All Active Problems (Updated 07/23/22 @ 02:41 by Shaneka Puentes DO) Morbid obesity (Chronic) History of asthma (Chronic) Mild intermittent asthma (Chronic) Elevated LDL cholesterol level (Chronic) Anxiety (Chronic) Urinary frequency (Chronic) 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) Elevated BP without diagnosis of hypertension (Chronic) Nonalcoholic hepatosteatosis (Chronic) Body mass index [BMI] 40.0-44.9, adult (Acute) Allergic reaction (Acute) Tongue irritation (Acute) Medical History (Updated 07/23/22 @ 02:41 by Shaneka Puentes DO) Constipation COVID-19 Menopausal state (~2019) natural, age 43 Surgical History H/O nasal septoplasty [place] teeth removed Family History (Updated 07/10/22 @ 15:27 by Sepideh Mclaughlin MD) Mother Depression COPD (chronic obstructive pulmonary disease) Father Alcohol abuse Maternal Grandfather Heart disease Maternal Grandmother Heart disease Paternal Grandfather , 55 CAD (coronary artery disease) Paternal Grandmother , 93 CHF (congestive heart failure) Son No problems noted. Daughter No problems noted. Social History (Updated 07/12/22 @ 12:36 by Ana Laura Mcclelland) Smoking/Tobacco Use Status: Never Second Hand Exposure: Yes Smoking risk assessment performed?: Yes Alcohol Intake: current Alcohol Intake frequency: a few times a month Alcohol type: wine Drug use: Never Substance use type: does not use Caregiver/Support person: No Household members: spouse Housing: house Number of Children: 2 Communication Needs: None Do you need help understanding health information?: Rarely current occupation: Currently unemployed. 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 Pets and animals: Yes Pets and animals: cat(s), dog(s) and horse(s) Sexually active: No Do you think of yourself as: straight/heterosexual Current gender identity: female What is your relationship status?: How often do you talk on the phone with friends or family?: three or more times per week How often do you get together with friends or relatives?: twice per week How often do you attend confucianist or christian services?: decline to answer Do you belong to any clubs or organized social groups?: no Panel score (0-1 are the most socially isolated patients): 2 What type of physical activity do you participate in: bicycling and other Details: stretching Duration: 30-45 minutes/day Frequency: 5-6 times per week Acacia/Uatsdin: No preference Special acacia needs: No Seatbelt use: always Helmet use: Yes Helmet use: always Drive intox or ride w/intox regional dedicated truck driver: No Do you feel safe at home: Yes Do you feel safe in your relationship?: Yes Additional Social history: Jen baez, spirituality feeds her soul. Female Reproductive History Menstrual Date of menopause: 05/12/17 Exam Const General: cooperative, no acute distress and anxious Orientation: alert, awake and oriented x3 HENMT Head: normal to inspection Ears: hearing grossly normal bilaterally and external ears normal Face and sinus: normal facial exam Mouth: no drooling and no trismus Other: Moderate edema, erythema, and tenderness of sublingual folds under the tongue. Tongue itself appears normal to inspection. No abscesses, bleeding or drainage noted. Eyes General: appearance normal, both eyes and all related structures Pupils: PERRL EOM: EOM intact bilaterally Neck Neck: normal visual inspection and No submandibular swelling Lymphatic: no lymphadenopathy noted Chest Chest: normal inspection of the chest and no tenderness Resp Effort & Inspection: normal respiratory effort and able to speak in complete sentences Auscultation: clear to auscultation bilaterally Cardio Rate: regular rate Rhythm: regular rhythm GI Inspection: normal to inspection and obesity Palpation: soft, not firm, not rigid and nontender Back/Spine/Pelvis Thoracic/Lumbar Spine: thoracic and lumbar spine normal to inspection Pelvis: no pain with anterior-posterior compression Skin General skin exam: no rashes or lesions noted Neuro General: patient alert, patient awake and patient oriented x3 Cognition: normal cognition Speech: speech normal Motor: muscle tone normal throughout Sensory Exam: no sensory deficits noted Extrem General: normal to inspection, full ROM, capillary refill normal, no calf tenderness bilaterally and no edema Psych Appearance: grossly normal Mental Status: mental status grossly normal Speech and Movement: speech and movement normal Affect: normal affect Course Vital Signs Vital signs: Vital Signs Temperature 97.9 F 07/23/22 01:44 Pulse 109 H 07/23/22 01:44 Respiratory Rate 20 07/23/22 01:44 Blood Pressure 151/82 H 07/23/22 01:44 Pulse Oximetry 100 07/23/22 01:44 Temperature 97.9 F 07/23/22 01:44 Temperature Source Skin 07/23/22 01:44 Pulse 109 H 07/23/22 01:44 Respiratory Rate 20 07/23/22 01:44 Respiratory Effort Normal 07/23/22 01:50 Blood Pressure 151/82 H 07/23/22 01:44 Blood Pressure Position Sitting 07/23/22 01:44 Pulse Oximetry 100 07/23/22 01:44 Oxygen Delivery Method Room Air 07/23/22 01:44 Oxygen Flow Rate 0 07/23/22 01:44 Pain Level 0 07/23/22 01:44
[2022-07-23] MEDS: predniSONE 20 MG TAB 60 MG PO (02:14)
[2022-07-23] MEDS: methylPREDNISolone SUCC 125 MG VIAL IVP (02:23)
[2022-07-23] MEDS: Ketorolac 30 MG/ML VIAL IVP (02:24)
[2022-07-23] MEDS: Famotidine 20 MG/2 ML VIAL IVP (02:39)
== END 2022-07-23 03:41 | disposition home or self-care (01) ==
PROVIDERS: Emergency Provider Physician Assistant; PCP Family Medicine
DX: T78.49XA Other allergy, initial encounter (principal); X58.XXXA Exposure to other specified factors, initial encounter
CPT/HCPCS: 96374; 96375; 99284; J1885; J2930; J7512

== ENCOUNTER 2024-06-07 02:04 | Outpatient (CLI) | payer BC, SELFPAY ==
--- NOTE | 2024-06-07 07:45 | DI.MAMMO_ITS ---
Exam(s) MAMMO SCREENING EXAM: MAMMO SCREENING CLINICAL HISTORY: screening,z12.39 TECHNIQUE: Bilateral full field digital CC and MLO mammographic images were obtained with 3D tomosyn thesis and utilizing computer aided detection (CAD). COMPARISON: Available for comparison. FINDINGS: Masses/Architectural Distortion: None seen. Microcalcifications: No suspicious pleomorphic-type are seen. Skin Thickening/Nipple Retraction: None. IMPRESSION: 1. No significant interval change with no specific features of malignancy noted. 2. Unless there is more urgent need, screening mammography is recommended, as per [employer] [employer] guidelines. BI-RADS Category 1 - Negative Breast Density - Category A - Almost entirely fatty Breast density category C or D implies that the patient has dense breast tissue. Dense breast tissue is very common and is not abnormal but dense breast tissue can make it harder to find cancer on a ma mmogram. Also, dense breast tissue may increase their breast cancer risk. This information about the result of the mammogram report was provided to the patient to raise their awareness. Use this report when you speak with the patient about their risks for breast cancer, which includes their family hist ory. At that time, you may recommend for more screening tests (Ultrasound or MRI) as they might be us eful based on their risk. A negative radiographic report should not delay biopsy if a dominant or clinically suspicious mass is present. Up to ten percent of cancers are not identified on mammography. A negative report may reinforce clinical impression. Adenosis and dense breasts may obscure an underlying neoplasm. False positive reports average 6 to 10%. Patient will receive a letter notifying them of these results.
== END 2024-06-07 02:24 ==
LOC: DI 02:04
PROVIDERS: PCP Family Medicine; Visit Provider Family Medicine
DX: Z12.31 Encounter for screening mammogram for malignant neoplasm of breast (principal); E66.01 Morbid (severe) obesity due to excess calories; R92.313 Mammographic fatty tissue density, bilateral breasts
CPT/HCPCS: 77063; 77067